=== PATIENT | female | born 1980 | race Caucasian/White ===

== ENCOUNTER 2018-06-28 05:07 | Emergency (ER) | payer MEDICAID ==
[~2018-06-28] VITALS: Ht 160 cm; Wt 54.0 kg
[2018-06-28 05:14] VITALS: Ht 160 cm; Wt 54.0 kg
[2018-06-28 06:13] LABS: BASOPHIL % 0.3 % (0-2); PLATELET COUNT 231 x10^3mcL (130-400); RED CELL DISTRIBUTION WIDTH 13.4 % (11.5-14.5)
[2018-06-28 06:23] LABS: CALCIUM 8.5 mg/dL (8.5-10.1); CARBON DIOXIDE 27.8 mmol/L (21-32); CHLORIDE SERUM 103 mmol/L (98-107); CREATININE SERUM 0.6 mg/dL (0.6-1.0); GFR1 > 60 mL/min; GLUCOSE SERUM 292 mg/dL (74-106); POTASSIUM SERUM 3.9 mmol/L (3.5-5.1); SODIUM SERUM 139 mmol/L (136-145)
[2018-06-28 06:37] LABS: ALBUMIN 3.5 g/dL (3.4-5.0); ALKALINE PHOSPHATASE 92 U/L (46-116); ALT/SGPT 22 U/L (14-59); AST/SGOT 9 U/L (15-37); BILIRUBIN TOTAL 0.42 mg/dL (0.20-1.00); FREE T4 1.95 ng/dL (0.76-1.46); TOTAL PROTEIN, SERUM 7.7 g/dL (6.4-8.2)
[2018-06-28 07:49] LABS: microscopic required? YES; urine erythrocyte NEGATIVE (NEGATIVE)
[2018-06-28 09:40] VITALS: BP 99/84
== END 2018-06-28 09:40 | disposition home or self-care (01) ==
LOC: ED 05:07
PROVIDERS: Emergency Medicine
DX: E11.42 Type 2 diabetes mellitus with diabetic polyneuropathy (principal); E11.10 Type 2 diabetes mellitus with ketoacidosis without coma; N39.0 Urinary tract infection, site not specified
CPT/HCPCS: 82962; 84439; J1815; J1885; J2270; Q0092

== ENCOUNTER 2018-08-01 18:49 | Emergency (ER) | payer MEDICAID ==
[~2018-08-01] VITALS: Ht 160 cm; Wt 50.3 kg
[2018-08-01 19:17] VITALS: BP 109/58; Ht 160 cm; Wt 50.3 kg
== END 2018-08-01 23:04 | disposition left against medical advice (07) ==
LOC: ED 18:49
DX: Z53.21 Procedure and treatment not carried out due to patient leaving prior to being seen by health care provider (principal)

== ENCOUNTER 2019-04-25 11:02 | Emergency (ER) | payer MEDICAID ==
[~2019-04-25] VITALS: Ht 157.5 cm; Wt 52.2 kg
[2019-04-25 11:07] VITALS: Ht 157.5 cm; Wt 52.2 kg
[2019-04-25 13:49] VITALS: BP 98/67
== END 2019-04-25 13:49 | disposition home or self-care (01) ==
LOC: ED 11:02
DX: M54.32 Sciatica, left side (principal); N39.0 Urinary tract infection, site not specified; E11.9 Type 2 diabetes mellitus without complications

== ENCOUNTER 2020-01-25 09:37 | Emergency (ER) | payer MEDICAID, SELFPAY ==
[~2020-01-25] VITALS: Ht 160 cm; Wt 54.4 kg
[2020-01-25 10:20] VITALS: Ht 160 cm; Wt 54.4 kg
[2020-01-25 10:52] LABS: UA SPECIFIC GRAVITY 1.015 (1.005-1.035); microscopic required? YES; urine erythrocyte 1+ (NEGATIVE)
[2020-01-25 10:55] LABS: ALBUMIN 3.5 g/dL (3.4-5.0); ALKALINE PHOSPHATASE 133 U/L (46-116); ALT/SGPT 23 U/L (14-59); AST/SGOT 23 U/L (15-37); BILIRUBIN TOTAL 0.2 mg/dL (0.20-1.00); CALCIUM 7.8 mg/dL (8.5-10.1); CARBON DIOXIDE 22.8 mmol/L (21-32); CHLORIDE SERUM 98 mmol/L (98-107); CREATININE SERUM 0.7 mg/dL (0.6-1.0); GFR1 > 60 mL/min; GLUCOSE SERUM 261 mg/dL (74-106); POTASSIUM SERUM 3.2 mmol/L (3.5-5.1); SODIUM SERUM 132 mmol/L (136-145); TOTAL PROTEIN, SERUM 7.9 g/dL (6.4-8.2)
[2020-01-25 11:00] LABS: BASOPHIL % 0.2 % (0-2); PLATELET COUNT 242 x10^3mcL (130-400)
[2020-01-25 11:36] LABS: RED CELL DISTRIBUTION WIDTH 15.7 % (11.5-14.5)
[2020-01-25 12:23] VITALS: BP 118/77
== END 2020-01-25 12:23 | disposition home or self-care (01) ==
LOC: ED 09:37
PROVIDERS: Emergency Medicine
DX: U07.1 COVID-19 (principal); B34.9 Viral infection, unspecified; E11.9 Type 2 diabetes mellitus without complications
CPT/HCPCS: J7030; Q0092; U0003-CS

== ENCOUNTER 2020-01-30 11:01 | Emergency (ER) | payer MEDICAID ==
[~2020-01-30] VITALS: Ht 157.5 cm; Wt 54.4 kg
[2020-01-30 11:22] VITALS: Ht 157.5 cm; Wt 54.4 kg
[2020-01-30 13:49] VITALS: BP 94/61
== END 2020-01-30 13:49 | disposition home or self-care (01) ==
LOC: ED 11:01
DX: G44.209 Tension-type headache, unspecified, not intractable (principal); U07.1 COVID-19; E11.9 Type 2 diabetes mellitus without complications
CPT/HCPCS: J0780; J1885

== ENCOUNTER 2020-02-19 07:53 | Emergency (ER) | payer MEDICAID ==
[~2020-02-19] VITALS: Ht 160 cm; Wt 55.8 kg
[2020-02-19 08:02] VITALS: Ht 160 cm; Wt 55.8 kg
[2020-02-19 08:37] VITALS: BP 109/55
== END 2020-02-19 08:37 | disposition home or self-care (01) ==
LOC: ED 07:53
DX: S81.811A Laceration without foreign body, right lower leg, initial encounter (principal); R51 Headache; W26.8XXA Contact with other sharp object(s), not elsewhere classified, initial encounter; Y93.89 Activity, other specified; Y92.89 Other specified places as the place of occurrence of the external cause; Y99.8 Other external cause status